=== PATIENT | female | born 1945 | race Caucasian/White ===

== ENCOUNTER 2016-08-26 10:32 | Outpatient (CLI) | payer MEDICARE, OTHER ==
--- NOTE | 2016-08-31 17:00 | Mammography Report ---
DIGITAL SCREENING MAMMOGRAM: 08/26/2016 CLINICAL INDICATION: A 71-year-old for screening. COMPARISON: 10/2006 TECHNIQUE: Routine CC and MLO projections were obtained of the breasts as well as bilateral laterall y exaggerated craniocaudal views. FINDINGS: The breasts demonstrate fatty replacement. Coarse, typically benign calcifications are pr esent. No suspicious masses, clustered microcalcifications, or regions of architectural distortion a re identified. IMPRESSION: BENIGN FINDINGS. RECOMMENDATION: Routine annual screening unless otherwise clinically indicated. BIRADS CATEGORY 2 - BENIGN FINDINGS. STANDARD QUALIFYING STATEMENTS 1. This examination was reviewed with the aid of Computer-Aided Detection (CAD). 2. A negative or benign imaging report should not delay biopsy if clinically suspicious findings are present. Consider surgical consultation if warranted. More than 5% of cancers are not identified by i maging. 3. Dense breasts may obscure an underlying neoplasm. JOB #: [id number] EXT JOB #:[id number]
== END 2016-08-26 10:33 | disposition home or self-care (01) ==
LOC: DI.N 10:32
PROVIDERS: ATTEND Family Medicine
DX: Z12.31 Encounter for screening mammogram for malignant neoplasm of breast (principal)
CPT/HCPCS: 77067

== ENCOUNTER 2018-04-27 16:02 | Outpatient (CLI) | payer MEDICARE, OTHER ==
--- NOTE | 2018-04-28 11:14 | XRAY Report ---
Reason: LUMBAR RADICULOPATHY Procedure Date: 04/27/2018 Accession Number: [id number] / [id number] Procedure: XR - Lumbar Spine 2 View CPT Code: FULL RESULT: EXAM: LUMBOSACRAL SPINE RADIOGRAPHY EXAM DATE: 04/27/2018 04:36 PM. CLINICAL HISTORY: Left-sided hip pain with no known injury. COMPARISONS: HIP W/PELVIS 2-3V RT 03/15/2015 2:03 PM. TECHNIQUE: 3 views. FINDINGS: Alignment: There is 17 degrees of convex left lumbar scoliosis apex at L1. No intrinsic vertebral body anomalies. There is 6 mm of grade 1 anterolisthesis of L2 on L3. 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 No fractures or bone lesions. Disks: Normal. Disk heights are maintained. Facets: Mild degenerative facet arthrosis on the left at L3-L4 and L4-transitional L5. Sacroiliac Joints: Unremarkable. Soft Tissues: Normal. The visualized bowel gas pattern is normal. Other: Severe asymmetric degenerative arthritis of the right hip with ddcg-do-rkhj articulation, mild osteophyte and subchondral sclerosis. IMPRESSION: 1. Mild lumbar scoliosis with secondary degenerative changes as described. No fracture appreciated. 2. Asymmetric severe osteoarthritis of the right hip, progressed since 2016. RADIA
== END 2018-04-27 16:03 | disposition home or self-care (01) ==
LOC: DI 16:02
PROVIDERS: ATTEND Family Medicine
DX: M47.9 Spondylosis, unspecified (principal); M41.86 Other forms of scoliosis, lumbar region; M16.11 Unilateral primary osteoarthritis, right hip; M43.16 Spondylolisthesis, lumbar region
CPT/HCPCS: 72100

== ENCOUNTER 2018-10-18 07:54 | Day surgery (SDC) | payer MEDICARE, OTHER ==
[2018-10-18] MEDS ORDERED: PROPOFOL 200 MG/20 ML VIAL IVP ONE (07:55)
[2018-10-18] MEDS ORDERED: KETOROLAC 30 MG/ML VIAL IVP ONE (07:55)
[2018-10-18] MEDS ORDERED: MIDAZOLAM 2 MG/2 ML VIAL IVP ONE (07:55)
[2018-10-18] MEDS ORDERED: fentaNYL 100 MCG/2 ML VIAL IVP ONE (07:55)
[2018-10-18] MEDS ORDERED: LACTATED RINGERS 1,000 ML IV ONE (08:01)
--- NOTE | 2018-10-18 09:08 | ANESTHESIA ---
Pre-Anesthesia VS, & Labs - Diagnosis Right carpal tunnel syndrome - Procedure Right carpal tunnel release Vital Signs: Temp Pulse Resp BP Pulse Ox 37.0 C 82 15 126/72 97 10/18/18 08:02 10/18/18 08:02 10/18/18 08:02 10/18/18 08:02 10/18/18 08:02 Height 5 ft 7 in Weight (kg) 108.3 kg - Is Patient ?: Not Applicable Home Medications and Allergies Home Medications: Ambulatory Orders Acetaminophen [Tylenol] 650 mg PO Q6H PRN 10/12/18 Sertraline HCl 50 mg PO DAILY 10/12/18 Trazodone HCl 100 - 150 mg PO QPM PRN 10/12/18 Acetaminophen [Tylenol] 650 mg PO Q6H PRN 10/12/18 Sertraline HCl 50 mg PO DAILY 10/12/18 Trazodone HCl 100 - 150 mg PO QPM PRN 10/12/18 Allergies/Adverse Reactions: Allergies Allergy/AdvReac Type Severity Reaction Status Date / Time oxycodone [From Percocet] AdvReac Nausea Verified 10/18/18 08:22 Anes History & Medical History - Anesthetic History Anesthesia Complications: reports: No previous complications - Medical History Cardiovascular: reports: None Pulmonary: reports: None Gastrointestinal: reports: Ulcers, Other Urinary: reports: None Neuro: reports: None Musculoskeletal: reports: Osteoarthritis Endocrine/Autoimmune: reports: None Blood Disorders: reports: None Skin: reports: None Smoking Status: Former smoker (Quit 1984) Psychosocial: reports: Depression - Surgical History Eyes Ears Nose Throat (EENT): Tonsil/Adenoidectomy Gynecologic: section, Tubal ligation Orthopedic: Hip replacement, Other Exam General: Alert, Oriented x3, Cooperative, No acute distress Dental: WNL Mouth Openin Fingerbreadth Neck Mobility: Normal Mallampati classification: I Thyromental Distance: greater than 6 cm Respiratory: Lungs clear, Normal breath sounds, No respiratory distress, No accessory muscle use Cardiovascular: Regular rate, Normal S1, Normal S2 Mental/Cognitive Status: Alert/Oriented X3, Normal for patient Plan Anesthesia Type: MAC Consent for Procedure(s) Verified and Reviewed: Yes Code Status: Attempt Resuscitation ASA classification: 2-Mild systemic disease Is this case an emergency?: No
[2018-10-18] MEDS ORDERED: BUPIVACAINE 0.5% PF 10 ML VIAL IM ONE ×2 (11:05)
[2018-10-18] MEDS ORDERED: LIDOCAINE 1% 50 ML MDV SUBQ ONE ×2 (11:05)
[2018-10-18] MEDS ORDERED: ONDANSETRON 4 MG/2 ML VIAL IVP PRN (11:23)
[2018-10-18] MEDS ORDERED: HYDROcod/ACETAM 5/325 MG TABLET PO PRN (11:23)
--- NOTE | 2018-10-18 11:27 | OPERATIVE REPORT ---
Operative Report - General Procedure Date: 10/18/18 Planned Procedure: Right carpal tunnel release Pre-Op Diagnosis: Right carpal tunnel syndrome Procedure Performed: Right carpal tunnel release Post Op Diagnosis: Same - Procedure Note Primary Surgeon: Michelle Yeh MD Anesthesia Provider: Hu Bloom CRNA Anesthesia Technique: MAC IV Fluids (mL): 300 Estimated Blood Loss (mL): 15 Complications: None
--- NOTE | 2018-10-18 11:42 | OPERATIVE REPORT ---
DATE OF SERVICE: 10/18/2018 Physician: Jose Yeh MD PREOPERATIVE DIAGNOSIS: Right carpal tunnel syndrome. POSTOPERATIVE DIAGNOSIS: Right carpal tunnel syndrome. PROCEDURE PERFORMED: Right carpal tunnel release. SURGEON: Jose Yeh MD ANESTHESIA: MAC with local anesthesia. DESCRIPTION OF PROCEDURE: Patient was taken to the operating room on the morning of 10/18/2018, wher e she had a local anesthetic block placed in the proximal portion of her right palm. We used 5 mL of 1:1 ratio of 0.5% Marcaine and 1% lidocaine without epinephrine. We then placed the arm in pneumati c tourniquet to the right upper extremity, then prepped and draped the arm free in the usual fashion for our procedure. After adequate local anesthesia was obtained, we then made a curvilinear palmar incision over the ane sthetized area. We then transected the superficial palmar fascia. A small praveena was then made with t he scalpel through the deep transverse carpal ligament. Protecting the contents of the carpal tunnel with a hemostat, we then sharply transected the distal 3/4 of the transverse deep carpal ligament. The proximal 0.25 of the transverse carpal ligament was then transected with tenotomy scissors. Afte r our release, we inspected the median nerve. It appeared to be under some compression and was now l ess compressed. There was also a vascular blush noted after the release. We then irrigated the woun d thoroughly with saline. We then closed the wound using interrupted horizontal mattress stitches of 4-0 nylon suture. We then dressed the wound with Xeroform gauze, sterile 4 x 4's, and a short arm v olar plaster splint was applied to the upper extremity. Tourniquet was released as we were dressing the wound. TOURNIQUET TIME: 12 minutes. ESTIMATED BLOOD LOSS: 10 mL REPLACEMENT: 300 mL crystalloid. INTRAOPERATIVE COMPLICATIONS: None. PLAN: Patient was discharged when stable. Will follow up in Orthopedic Clinic in 2 weeks' time. TD: 10/18/2018 11:33
[2018-10-18 11:54] VITALS: BP 96/59
== END 2018-10-18 07:55 | disposition home or self-care (01) ==
LOC: SDS 07:54
PROVIDERS: ATTEND Orthopaedic Surgery
PROC: 01N50ZZ Release Median Nerve, Open Approach (ICD-10-PCS; principal; 2018-10-18 09:30)
DX: G56.01 Carpal tunnel syndrome, right upper limb (principal); Z87.891 Personal history of nicotine dependence; M19.90 Unspecified osteoarthritis, unspecified site; F32.9 Major depressive disorder, single episode, unspecified
CPT/HCPCS: 64721; J7120

== ENCOUNTER 2019-03-22 10:00 | Outpatient (CLI) | payer MEDICARE, OTHER ==
[2019-03-22 12:09] LABS: BASOPHILS # (AUTO) 0.1 10^3/uL (0.0-0.1); BASOPHILS % (AUTO) 0.7 %; EOSINOPHILS # (AUTO) 0.4 10^3/uL (0.0-0.7); EOSINOPHILS % (AUTO) 5.9 %; LYMPHOCYTES # (AUTO) 2.5 10^3/uL (1.5-3.5); LYMPHOCYTES % (AUTO) 33.5 %; MEAN CORPUSCULAR HEMOGLOBIN 29.5 pg (27.0-31.0); MEAN CORPUSCULAR HGB CONC 30.8 g/dL (32.0-36.0); MEAN CORPUSCULAR VOLUME 95.6 fL (81.0-99.0); MEAN PLATELET VOLUME 10.5 fL (7.9-10.8); MONOCYTES # (AUTO) 0.8 10^3/uL (0.0-1.0); MONOCYTES % (AUTO) 10.7 %; NEUTROPHILS # (AUTO) 3.6 10^3/uL (1.5-6.6); NEUTROPHILS % (AUTO) 48.8 %; PLT - PLATELET COUNT 257 10^3/uL (130-450); RED BLOOD COUNT 4.07 10^6/uL (4.20-5.40); WHITE BLOOD COUNT 7.3 x10^3/uL (4.8-10.8)
[2019-03-22 12:31] LABS: ALBUMIN/GLOBULIN RATIO 1.1 (1.0-2.2); BILIRUBIN,TOTAL 0.4 mg/dL (0.2-1.0); CALCIUM 9.5 mg/dL (8.5-10.3); CREATININE 0.8 mg/dL (0.4-1.0); TOTAL PROTEIN 7.8 g/dL (6.7-8.2)
== END 2019-03-22 23:59 | disposition home or self-care (01) ==
LOC: LAB.WCP 10:00
PROVIDERS: ATTEND Family Medicine
DX: R11.2 Nausea with vomiting, unspecified (principal)
CPT/HCPCS: 36415; 80053; 83690; 85025

== ENCOUNTER 2021-05-28 15:37 | Outpatient (CLI) | payer MEDICARE, OTHER ==
--- NOTE | 2021-05-28 16:38 | XRAY Report ---
PROCEDURE: Lumbar Spine 2 View INDICATIONS: IMPAIRED FUNCTION OF THE LUMBAR SPINE TECHNIQUE: 3 views of the lumbar spine were acquired. COMPARISON: None. FINDINGS: Bones: 5 oef-dee-wtwjfcz vertebrae are present. There is normal bony alignment. No vertebral body compression fractures. No suspicious bony lesions. Transitional anatomy present. There is partial sacralization of the L5 vertebral body. Interval place ment of a right hip prosthesis appears stable convex left lumbar scoliosis and degenerative disc dise ase with arthropathy lower lumbar spine. There has been been height loss of the L5 vertebral body. Soft tissues: Overlying bowel gas pattern is normal. No suspicious soft tissue calcifications. IMPRESSION: 1. Transitional anatomy present. Partial sacralization of the L5 vertebral body. 2. L5 compression fracture, uncertain age, but new from the prior exam 2. Degenerative disc disease, arthropathy and thoracolumbar levoscoliosis Reviewed by: uYsuf Parr MD on 05/28/2021 3:36 PM AKARIELA Approved by: Yusuf Parr MD on 05/28/2021 3:36 PM AKDT Station ID: [id number]
--- NOTE | 2021-05-28 17:18 | XRAY Report ---
PROCEDURE: Knee 4 View LT INDICATIONS: EFFUSION OF L KNEE TECHNIQUE: 4 views of the left knee(s) were acquired. COMPARISON: None. FINDINGS: Bones: No fractures or dislocations. No suspicious bony lesions. Moderate left knee tricompartment al osteoarthritis. Soft tissues: Small nonspecific joint effusion. No suspicious soft tissue calcifications. IMPRESSION: Moderate tricompartmental osteophytosis. Small nonspecific joint effusion. Reviewed by: Jennifer Yu MD, PhD on 05/28/2021 5:16 PM PDT Approved by: Jennifer Yu MD, PhD on 05/28/2021 5:16 PM PDT Station ID: [id number]
== END 2021-05-28 15:38 | disposition home or self-care (01) ==
LOC: DI.N 15:37
PROVIDERS: ATTEND Family Medicine
DX: M17.12 Unilateral primary osteoarthritis, left knee (principal); M25.462 Effusion, left knee; M51.36 Other intervertebral disc degeneration, lumbar region; M48.56XA Collapsed vertebra, not elsewhere classified, lumbar region, initial encounter for fracture; M47.816 Spondylosis without myelopathy or radiculopathy, lumbar region; M41.9 Scoliosis, unspecified

== ENCOUNTER 2021-06-30 15:01 | Outpatient (CLI) | payer MEDICARE, OTHER ==
--- NOTE | 2021-06-30 17:06 | DEXA Report ---
PROCEDURE: Dexa Spine and/or Hip INDICATIONS: OSTEOPENIA TECHNIQUE: Dual energy x-ray absorptiometry (DXA) was performed on a [employer] System. Regions measur ed are the AP Spine, femoral neck, and if needed forearm. COMPARISON: None. FINDINGS: Lumbar Spine: Bone Mineral Density 1.3-6 g/cm/cm,T score 1.2 Left Hip: Bone Mineral Density 0.773 g/cm/cm,T score -1.9 Left Femoral Neck: Bone Mineral Density 0.696 g/cm/cm, T score -2.5 (T score greater or equal to -1.0: NORMAL) (T score from -1.1 to -2.4: OSTEOPENIA) (T score less than or equal to -2.5 to: OSTEOPOROSIS) Impression: Osteoporosis Patients with diagnosis of osteoporosis or osteopenia should have regular bone mineral density assess ment. For those eligible for Medicare, routine testing is allowed once every 2 years. Testing frequ ency can be increased for patients who have rapidly progressing disease or for those who are receivin g medical therapy to restore bone mass. Reviewed by: Richie Mercado MD on 06/30/2021 5:04 PM PDT Approved by: Richie Mercado MD on 06/30/2021 5:04 PM PDT Station ID: [id number]
== END 2021-06-30 15:02 | disposition home or self-care (01) ==
LOC: DI 15:01
PROVIDERS: ATTEND Family Medicine
DX: M81.0 Age-related osteoporosis without current pathological fracture (principal)

== ENCOUNTER 2022-01-08 08:44 | Day surgery (SDC) | payer MEDICARE, OTHER ==
[2022-01-08] MEDS ORDERED: LACTATED RINGERS 1,000 ML IV ONE ×2 (09:23→11:34)
--- NOTE | 2022-01-08 10:07 | ANESTHESIA ---
Pre-Anesthesia VS, & Labs - Diagnosis Active acid reflex, screening colonoscopy - Procedure EGD, Colonoscopy Vital Signs: Temp Pulse Resp BP Pulse Ox O2 Flow Rate 36.4 C L 71 16 140/74 H 97 0 01/08/22 09:07 01/08/22 09:07 01/08/22 09:07 01/08/22 09:07 01/08/22 09:07 01/08/22 09:07 Height: 5 ft 7 in Weight (kg): 99 kg Body Mass Index: 34.2 BMI Classification: Obese - NPO >8 hours - Is Patient ?: No Home Medications and Allergies Acetaminophen [Tylenol] 650 mg PO Q6H PRN 10/12/18 Sertraline HCl 50 mg PO DAILY 10/12/18 Trazodone HCl 100 - 150 mg PO QPM PRN 10/12/18 Allergies/Adverse Reactions: Allergies Allergy/AdvReac Type Severity Reaction Status Date / Time oxycodone [From Percocet] AdvReac Nausea Verified 10/18/18 08:22 Anes History & Medical History - Anesthetic History Anesthesia Complications: reports: No previous complications Family history of Anesthesia Complications: Denies Family history of Malignant Hyperthermia: Denies - Medical History Cardiovascular: reports: None Pulmonary: reports: None Gastrointestinal: reports: Ulcers, Other Urinary: reports: None Neuro: reports: None Musculoskeletal: reports: Osteoarthritis Endocrine/Autoimmune: reports: None Blood Disorders: reports: None Skin: reports: None Smoking Status: Former smoker (Quit 1984) Psychosocial: reports: No issues indicated History of Cancer?: No - Surgical History Eyes Ears Nose Throat (EENT): reports: Tonsil/Adenoidectomy Gynecologic: reports: section, Tubal ligation Orthopedic: reports: Hip replacement, Other (trigger fingers) Exam General: Alert, Oriented x3, Cooperative, No acute distress Dental: Dentures full Upper Mouth Openin Fingerbreadth Neck Mobility: Normal Mallampati classification: II Thyromental Distance: 4-6 cm Respiratory: Lungs clear, Normal breath sounds, No respiratory distress, No accessory muscle use Cardiovascular: Regular rate, Normal S1, Normal S2, No murmurs Mental/Cognitive Status: Alert/Oriented X3, Normal for patient Cognitive Status: Within normal limits Plan Anesthesia Type: General Consent for Procedure(s) Verified and Reviewed: Yes Code Status: Attempt Resuscitation ASA classification: 2-Mild systemic disease Is this case an emergency?: No
[2022-01-08] MEDS ORDERED: PROPOFOL 500 MG/50 ML 500 MG/50 ML VIAL ONE (10:09)
[2022-01-08] MEDS ORDERED: LIDOCAINE-MPF 2% 5 ML VIAL ONE (10:12)
[2022-01-08] MEDS ORDERED: CITRIC ACID/SODIUM CITRATE 15 ML UDC PO ONE ×2 (10:19→12:32)
[2022-01-08] MEDS ORDERED: ONDANSETRON 4 MG/2 ML VIAL ONE (10:20)
[2022-01-08] MEDS ORDERED: GLYCOPYRROLATE 1 MG/5 ML VIAL ONE (10:58)
[2022-01-08] MEDS ORDERED: PROPOFOL 200 MG/20 ML VIAL IVP ONE (11:07)
[2022-01-08 12:15] VITALS: BP 142/78
--- NOTE | 2022-01-08 14:43 | ANESTHESIA POST OP EVALUATION ---
Anesthesia Post Eval - Post Anesthesia Eval Vitals: Last Vital Signs Temp 36.3 C L 01/08/22 11:44 Pulse 91 01/08/22 12:13 Resp 22 01/08/22 12:13 BP 142/78 H 01/08/22 12:13 Pulse Ox 100 01/08/22 12:13 O2 Flow Rate 0 01/08/22 09:07 CV Function Including HR & BP: Stable Pain Control: Satisfactory Nausea & Vomiting: Negative Mental Status: Baseline Respiratory Status: Airway Patent Hydration Status: Satisfactory Anesthesia Complications: None
== END 2022-01-08 08:45 | disposition home or self-care (01) ==
LOC: SDS 08:44
PROVIDERS: ATTEND Surgery
PROC: 0DB78ZX Excision of Stomach, Pylorus, Via Natural or Artificial Opening Endoscopic, Diagnostic (ICD-10-PCS; 2022-01-08)
PROC: 0DB28ZX Excision of Middle Esophagus, Via Natural or Artificial Opening Endoscopic, Diagnostic (ICD-10-PCS; 2022-01-08)
PROC: 0DJD8ZZ Inspection of Lower Intestinal Tract, Via Natural or Artificial Opening Endoscopic (ICD-10-PCS; principal; 2022-01-08 10:00)
PROC: 0DB38ZX Excision of Lower Esophagus, Via Natural or Artificial Opening Endoscopic, Diagnostic (ICD-10-PCS; 2022-01-08 10:00)
DX: R19.5 Other fecal abnormalities (principal); K57.30 Diverticulosis of large intestine without perforation or abscess without bleeding; R13.10 Dysphagia, unspecified; K44.9 Diaphragmatic hernia without obstruction or gangrene; K20.90 Esophagitis, unspecified without bleeding; K25.7 Chronic gastric ulcer without hemorrhage or perforation; K21.9 Gastro-esophageal reflux disease without esophagitis; R11.2 Nausea with vomiting, unspecified; E66.9 Obesity, unspecified; Z68.34 Body mass index [BMI] 34.0-34.9, adult; Z87.891 Personal history of nicotine dependence
CPT/HCPCS: 43239; 45378; A9270; J7120

== ENCOUNTER 2022-06-16 15:09 | Outpatient (CLI) | payer MEDICARE, OTHER ==
--- NOTE | 2022-06-16 16:13 | XRAY Report ---
PROCEDURE: Hips 2V BILAT INDICATIONS: HIP PAIN, LEFT TECHNIQUE: 2 views of the hips were acquired. COMPARISON: None. FINDINGS: Bones: No fractures or dislocations. No suspicious bony lesions. Moderate multiple osteophytes, d efinite narrowing of joint space, small pseudocystic areas with sclerotic bolden and possible deformit y of bone contour of the left hip joint. Normal appearance of the right hip arthroplasty. Soft tissues: No suspicious soft tissue calcifications or masses. IMPRESSION: No acute bony abnormality. Kellgren-Rakesh scale of osteoarthritis: Grade 3: moderate osteoarthritis of the left hip joint. Reviewed by: Nixon Alegria on 06/16/2022 4:12 PM PDT Approved by: Nixon Alegria on 06/16/2022 4:12 PM PDT Station ID: [id number]
--- NOTE | 2022-06-16 16:14 | XRAY Report ---
PROCEDURE: Knee 4 View LT INDICATIONS: HIP PAIN, LEFT/KNEE PAIN,LEFT TECHNIQUE: 4 views of the left knee(s) were acquired. COMPARISON: None. FINDINGS: Bones: No fractures or dislocations. No suspicious bony lesions. Definite osteophytes and possibl e narrowing of joint space. This is tricompartmental. Soft tissues: Trace knee joint effusion. No suspicious soft tissue calcifications or masses. IMPRESSION: No acute bony abnormality. Tricompartmental Kellgren-Rakesh scale of osteoarthritis: Grade 2: mild osteoarthritis. Reviewed by: Nixon Alegria on 06/16/2022 4:13 PM PDT Approved by: Nixon Alegria on 06/16/2022 4:13 PM PDT Station ID: [id number]
== END 2022-06-16 15:10 | disposition home or self-care (01) ==
LOC: DI 15:09
PROVIDERS: ATTEND Physician Assistant
DX: M16.12 Unilateral primary osteoarthritis, left hip (principal); M17.12 Unilateral primary osteoarthritis, left knee